=== PATIENT | male | born 1980 | race Two or more races ===

== ENCOUNTER 2016-12-24 11:14 | Inpatient (IN) | payer MEDICAID ==
[~2016-12-24] VITALS: Ht 175.3 cm; Wt 107.4 kg
[2016-12-24] MEDS ORDERED: SODIUM CHLORIDE 0.9% 500 ML IV ONE (11:58)
[2016-12-24 12:23] LABS: Basophils # (auto) 0 uL; Basophils % (auto) 0.3 % (0.0-2.0); CONDITION Y; Eosinophils # (auto) 0 uL; Eosinophils % (auto) 0.4 % (0.0-7.0); Hematocrit 49.6 % (41.0-53.0); Hemoglobin 17.2 g/dL (13.5-17.5); Lymphocytes # (auto) 1.7 uL; Lymphocytes % (auto) 21.2 % (10.0-50.0); Mean Corpuscular Hemoglobin 31.2 pg (28.0-32.0); Mean Corpuscular Hgb Conc. 34.6 g/dL (32.0-36.0); Mean Platelet Volume 8.8 fL (7.4-10.4); Monocytes # (auto) 0.9 uL; Monocytes % (auto) 11.1 % (0.0-12.0); Neutrophils # (auto) 5.4 uL; Platelet Count (auto) 244 10^3/uL (140-450); Red Cell Distribution Width 13.6 % (11.6-16.0); White Blood Cell 8.1 10^3/uL (4.4-10.8)
[2016-12-24 12:57] LABS: Albumin 3.9 g/dL (3.4-5.0); Bilirubin, Total 0.8 mg/dL (0.2-1.0); Calcium 9.2 mg/dL (8.5-10.1); Magnesium 2.2 mg/dL (1.6-2.6); Potassium 4.3 mmol/L (3.5-5.1); Total Protein 8.5 g/dL (6.4-8.2)
[2016-12-24] MEDS ORDERED: SODIUM CHLORIDE 0.9% 1,000 ML IV ONE (13:15)
[2016-12-24] MEDS ORDERED: InsuLIN REG 1unit/0.01ml Soln (100units/ml) IV ONE (13:15)
[2016-12-24] MEDS ORDERED: LACTULOSE 20Gm/30ML SOLN PO PRN (15:30)
[2016-12-24] MEDS ORDERED: MORPHINE SULF INJ 2 MG/ML SYRINGE 1ML IV PRN (15:30)
[2016-12-24] MEDS ORDERED: THIAMINE HCL 100 MG/ML 2ML VIAL IV ONE (15:30)
[2016-12-24] MEDS ORDERED: HYDROcodone-ACET 5/325MG TAB PO PRN (15:30)
[2016-12-24] MEDS ORDERED: LORazepam 2MG/ML-1ML VIAL IV PRN (15:30)
[2016-12-24] MEDS ORDERED: LORazepam 0.5 MG TAB PO PRN (15:30)
[2016-12-24] MEDS ORDERED: ACETAMINOPHEN 500 MG TAB PO PRN (15:30)
[2016-12-24] MEDS ORDERED: TEMAZEPAM 15 MG CAP PO PRN (15:30)
[2016-12-24] MEDS ORDERED: chlordiazePOXIDE HCL 25 MG CAP PO PRN (15:30)
[2016-12-24] MEDS ORDERED: DEXTROSE (50%) 50ML SYRG IV PRN (15:30)
[2016-12-24] MEDS ORDERED: ONDANSETRON HCL 4 MG/2 ML VIAL IV PRN (15:30)
[2016-12-24] MEDS ORDERED: LABETALOL HCL 5 MG/ML ML 20ML VIAL IV PRN (15:30)
[2016-12-24] MEDS: ACCU-CHEK COMFORT CURVE STRIP VI SCH ×3 (15:39→23:41)
[2016-12-24] MEDS ORDERED: LABETALOL HCL 5 MG/ML ML 20ML VIAL IV ONE (15:45)
[2016-12-24] MEDS: InsuLIN REG 1unit/0.01ml Soln (100units/ml) SC SCH ×3 (15:50→23:47)
[2016-12-24 16:00] LABS: Cholesterol 188 mg/dL (< 200); HDL Cholesterol 40 mg/dL (40-59); LDL Cholesterol 111 mg/dL (< 100); Triglycerides 283 mg/dL (< 150)
[2016-12-24 16:25] LABS: Temperature: 22.2 C (20.0-25.0)
[2016-12-24] MEDS ORDERED: chlordiazePOXIDE HCL 25 MG CAP PO ONE (17:30)
[2016-12-24] MEDS ORDERED: cloNIDine HCL 0.1 MG TAB PO ONE (17:30)
[2016-12-24] MEDS ORDERED: chlordiazePOXIDE HCL 5 MG CAP PO SCH (18:00)
[2016-12-24] MEDS: THIAMINE INJ 100 MG, MULTIPLE VITAMIN 10 ML, FOLIC ACID 1 MG, MAGNESIUM SULF SDV 50% 8 ... IV SCH ×5 (18:05)
[2016-12-24] MEDS: chlordiazePOXIDE HCL 25 MG CAP PO SCH ×2 (18:05→23:40)
[2016-12-24] MEDS: SODIUM CHLORIDE 0.9% 1,000 ML IV SCH (18:51)
[2016-12-24 19:24] LABS: Urine Bilirubin Negative (Negative); Urine Blood Negative /uL (Negative); Urine Color Yellow (Yellow); Urine Nitrite Negative (Negative); Urine RBC <1 /hpf (0 - 3); Urine Squamous Epithelial Cell FEW /hpf (<5); Urine Urobilinogen Normal (Negative)
[2016-12-24 19:27] LABS: Urine Glucose 4+ mg/dL (Normal); Urine Ketone 1+ (Negative)
[2016-12-24 20:00] VITALS: BP 163/86
[2016-12-24] MEDS: ATORVASTATIN 20 MG TAB PO SCH (21:39)
[2016-12-24 22:00] VITALS: BP 163/86
[2016-12-24] MEDS ORDERED: ATORVASTATIN 20 MG TAB PO SCH ×2 (22:00)
[2016-12-24] MEDS: cloNIDine HCL 0.1 MG TAB PO PRN (22:29)
[2016-12-24] MEDS ORDERED: GLIP-115 PO (22:48)
[2016-12-24] MEDS ORDERED: HYDR-2652 PO (22:49)
[2016-12-25] MEDS: SODIUM CHLORIDE 0.9% 1,000 ML IV SCH ×4 (01:19→20:46)
[2016-12-25] MEDS: ACCU-CHEK COMFORT CURVE STRIP VI SCH ×5 (04:06→19:51)
[2016-12-25] MEDS: InsuLIN REG 1unit/0.01ml Soln (100units/ml) SC SCH ×5 (04:07→20:37)
[2016-12-25 05:50] LABS: Basophils # (auto) 0 uL; Basophils % (auto) 0.5 % (0.0-2.0); CONDITION Y; DEFINITIVE SEE PRINTOUT; Eosinophils # (auto) 0.1 uL; Eosinophils % (auto) 1.6 % (0.0-7.0); Hematocrit 41.7 % (41.0-53.0); Hemoglobin 14.9 g/dL (13.5-17.5); Lymphocytes # (auto) 2.7 uL; Lymphocytes % (auto) 36.2 % (10.0-50.0); Mean Corpuscular Hemoglobin 32.2 pg (28.0-32.0); Mean Corpuscular Hgb Conc. 35.8 g/dL (32.0-36.0); Mean Corpuscular Volume 89.9 fL (80.0-100.0); Mean Platelet Volume 8.5 fL (7.4-10.4); Monocytes # (auto) 0.6 uL; Monocytes % (auto) 8.2 % (0.0-12.0); Neutrophils # (auto) 3.9 uL; Neutrophils % (auto) 53.5 % (37.0-80.0); Platelet Count (auto) 196 10^3/uL (140-450); Red Cell Distribution Width 13.4 % (11.6-16.0); White Blood Cell 7.3 10^3/uL (4.4-10.8)
[2016-12-25 05:53] VITALS: BP 126/88
[2016-12-25 06:00] LABS: INR 1.12 (0.9-1.15); Partial Thromboplastin Time 26.5 sec (22.64-33.71); Prothrombin Time 12.2 sec (9.37-12.3)
[2016-12-25 06:14] LABS: Albumin 2.9 g/dL (3.4-5.0); Bilirubin, Total 0.9 mg/dL (0.2-1.0); Potassium 3.1 mmol/L (3.5-5.1); Total Protein 6.4 g/dL (6.4-8.2)
[2016-12-25] MEDS: chlordiazePOXIDE HCL 25 MG CAP PO SCH ×3 (06:14→18:00)
[2016-12-25 08:23] VITALS: BP 124/76
[2016-12-25] MEDS: ASPirin 81 mg TAB PO SCH (09:20)
[2016-12-25] MEDS: THIAMINE HCL 100 MG/ML 2ML VIAL IV SCH (09:21)
[2016-12-25] MEDS ORDERED: ASPirin 81 mg TAB PO ONE (10:00)
[2016-12-25] MEDS ORDERED: POTASSIUM CHL 20 Meq TABLET PO ONE (13:00)
[2016-12-25 13:19] VITALS: BP 145/86
[2016-12-25] MEDS: glipiZIDE 5 MG TAB PO SCH (13:27)
[2016-12-25] MEDS: LISINOPRIL 10 MG TAB PO SCH (13:27)
[2016-12-25] MEDS: HCTZ 25 MG TAB PO SCH (13:28)
[2016-12-25] MEDS ORDERED: DEXTROSE (50%) 50ML SYRG IV PRN (14:00)
[2016-12-25 17:23] VITALS: BP 151/96
[2016-12-25] MEDS: THIAMINE INJ 100 MG, MULTIPLE VITAMIN 10 ML, FOLIC ACID 1 MG, MAGNESIUM SULF SDV 50% 8 ... IV SCH ×5 (18:26)
[2016-12-25 20:00] VITALS: BP 174/94
[2016-12-25] MEDS: ATORVASTATIN 20 MG TAB PO SCH (20:36)
[2016-12-25] MEDS: cloNIDine HCL 0.1 MG TAB PO PRN (20:48)
[2016-12-25 22:19] VITALS: BP 174/94
[2016-12-26] MEDS: ACCU-CHEK COMFORT CURVE STRIP VI SCH ×3 (00:09→08:00)
[2016-12-26] MEDS: chlordiazePOXIDE HCL 25 MG CAP PO SCH ×2 (00:48→06:24)
[2016-12-26] MEDS: InsuLIN REG 1unit/0.01ml Soln (100units/ml) SC SCH ×3 (00:49→08:00)
[2016-12-26] MEDS: SODIUM CHLORIDE 0.9% 1,000 ML IV SCH (03:50)
[2016-12-26 06:04] VITALS: BP 135/82
[2016-12-26] MEDS: glipiZIDE 5 MG TAB PO SCH (06:26)
[2016-12-26 08:10] VITALS: BP 135/84
[2016-12-26] MEDS: ASPirin 81 mg TAB PO SCH (09:35)
[2016-12-26] MEDS: THIAMINE HCL 100 MG/ML 2ML VIAL IV SCH (09:35)
[2016-12-26] MEDS: LISINOPRIL 10 MG TAB PO SCH (09:36)
[2016-12-26] MEDS: HCTZ 25 MG TAB PO SCH (09:36)
[2016-12-26 11:51] VITALS: BP 135/84
[2016-12-26 12:34] VITALS: BP 180/89
== END 2016-12-26 13:00 | disposition home or self-care (01) | DRG 199 ==
LOC: ER 11:14 → TELE 11:15 → TELE-WESTW 19:37
PROVIDERS: ADMIT Internal Medicine; ATTEND Internal Medicine
DX: I16.0 Hypertensive urgency (principal); E11.42 Type 2 diabetes mellitus with diabetic polyneuropathy; E11.65 Type 2 diabetes mellitus with hyperglycemia; I10 Essential (primary) hypertension; L03.114 Cellulitis of left upper limb; E11.319 Type 2 diabetes mellitus with unspecified diabetic retinopathy without macular edema; E78.5 Hyperlipidemia, unspecified; E66.9 Obesity, unspecified; F10.20 Alcohol dependence, uncomplicated; H54.42 Blindness, left eye, normal vision right eye; F15.90 Other stimulant use, unspecified, uncomplicated; S61.512A Laceration without foreign body of left wrist, initial encounter; Z79.82 Long term (current) use of aspirin; Z79.899 Other long term (current) drug therapy; Z82.49 Family history of ischemic heart disease and other diseases of the circulatory system; Z83.3 Family history of diabetes mellitus; Z91.19 Patient's noncompliance with other medical treatment and regimen; X58.XXXA Exposure to other specified factors, initial encounter; Y93.89 Activity, other specified; Y92.89 Other specified places as the place of occurrence of the external cause; Z68.35 Body mass index [BMI] 35.0-35.9, adult
CPT/HCPCS: 36415; 70450; 71010; 80053; 80061; 80307; 80320; 81001; 82550; 82607; 82746; 82962; 83036; 83735; 84443; 85025; 85610; 85652; 85730; 93005; 93306; 93886; 96361; 96374; 96375; J1815

== ENCOUNTER 2018-06-11 13:44 | Emergency (ER) | payer MEDICAID ==
[~2018-06-11] VITALS: Ht 175.3 cm; Wt 108.9 kg
[~2018-06-11 13:44] MED LIST: GLIP-115 PO; HYDR50TA15 PO
[2018-06-11 13:59] VITALS: BP 190/100
== END 2018-06-11 15:01 | disposition home or self-care (01) ==
LOC: EDBD 13:44 → ER 13:49
DX: S13.4XXA Sprain of ligaments of cervical spine, initial encounter (principal); S60.221A Contusion of right hand, initial encounter; E11.9 Type 2 diabetes mellitus without complications; I10 Essential (primary) hypertension; F15.90 Other stimulant use, unspecified, uncomplicated; F14.90 Cocaine use, unspecified, uncomplicated; Z79.899 Other long term (current) drug therapy; Z79.84 Long term (current) use of oral hypoglycemic drugs; V49.59XA Passenger injured in collision with other motor vehicles in traffic accident, initial encounter; Y93.89 Activity, other specified; Y99.8 Other external cause status; Y92.89 Other specified places as the place of occurrence of the external cause
CPT/HCPCS: 71101; 73120

== ENCOUNTER 2018-09-20 16:28 | Emergency (ER) | payer MEDICAID ==
[~2018-09-20] VITALS: Ht 180.3 cm; Wt 124.7 kg
[2018-09-20 16:37] VITALS: BP 161/89
[2018-09-20 17:14] LABS: Chloride 107 mmol/L (98-107); Potassium 3.9 mmol/L (3.5-5.1); Sodium 139 mmol/L (136-145)
[2018-09-20 17:16] LABS: Basophils # (auto) 0 uL; Basophils % (auto) 0.4 % (0.0-2.0); Eosinophils # (auto) 0.1 uL; Eosinophils % (auto) 0.8 % (0.0-7.0); Hemoglobin 13.4 g/dL (13.5-17.5); Lymphocytes # (auto) 1.9 uL; Lymphocytes % (auto) 26.6 % (10.0-50.0); Mean Corpuscular Hemoglobin 29.6 pg (28.0-32.0); Mean Corpuscular Hgb Conc. 32.8 g/dL (32.0-36.0); Mean Corpuscular Volume 90.3 fL (80.0-100.0); Monocytes # (auto) 0.8 uL; Monocytes % (auto) 10.8 % (0.0-12.0); Neutrophils # (auto) 4.4 uL; Neutrophils % (auto) 61.4 % (37.0-80.0); Platelet Count (auto) 246 10^3/uL (140-450); Red Blood Cells 4.53 10^6/uL (4.5-5.90); Red Cell Distribution Width 13.3 % (11.8-14.3); White Blood Cell 7.2 10^3/uL (4.4-10.8)
[2018-09-20 17:19] LABS: Albumin 3.1 g/dL (3.4-5.0); Anion Gap 9 (5-15); Blood Urea Nitrogen 24 mg/dL (7-18); Calcium 8.2 mg/dL (8.5-10.1); Carbon Dioxide 23 mmol/L (21-32); Glucose 296 mg/dL (74-106)
[2018-09-20 17:22] LABS: Alanine Aminotransferase 30 U/L (16-61); Aspartate Aminotransferase 22 U/L (15-37); BUN/Creatinine Ratio 23.3; GFR African American 104 mL/min; GFR Non-African American 86 mL/min
[2018-09-20 17:25] LABS: Alkaline Phosphatase 45 U/L (45-117); Bilirubin, Total 0.6 mg/dL (0.2-1.0)
== END 2018-09-20 17:10 | disposition left against medical advice (07) ==
LOC: EDBD 16:28 → ER 16:47
DX: R42 Dizziness and giddiness (principal); Z53.21 Procedure and treatment not carried out due to patient leaving prior to being seen by health care provider
CPT/HCPCS: 36415; 80053; 84484; 85025; 93005

== ENCOUNTER 2018-12-23 17:47 | Emergency (ER) | payer MEDICAID ==
[~2018-12-23] VITALS: Ht 172.7 cm; Wt 125.6 kg
[~2018-12-23 17:47] MED LIST changes: -GLIP-115 PO; +GLIP5TAB12 PO
[2018-12-23 19:36] LABS: Basophils # (auto) 0 uL; Basophils % (auto) 0.4 % (0.0-2.0); Eosinophils # (auto) 0.1 uL; Eosinophils % (auto) 0.5 % (0.0-7.0); Hematocrit 43.4 % (41.0-53.0); Hemoglobin 14.9 g/dL (13.5-17.5); Lymphocytes # (auto) 2.2 uL; Lymphocytes % (auto) 22.4 % (10.0-50.0); Mean Corpuscular Hemoglobin 30.2 pg (28.0-32.0); Mean Corpuscular Hgb Conc. 34.3 g/dL (32.0-36.0); Mean Corpuscular Volume 87.9 fL (80.0-100.0); Monocytes # (auto) 0.9 uL; Monocytes % (auto) 9.5 % (0.0-12.0); Neutrophils # (auto) 6.7 uL; Neutrophils % (auto) 67.2 % (37.0-80.0); Nucleated Red Blood Cells % 0.1 %; Platelet Count (auto) 277 10^3/uL (140-450); Red Blood Cells 4.94 10^6/uL (4.5-5.90); Red Cell Distribution Width 13.8 % (11.8-14.3); White Blood Cell 9.9 10^3/uL (4.4-10.8)
[2018-12-23 19:55] LABS: Albumin 3.6 g/dL (3.4-5.0); Calcium 8.8 mg/dL (8.5-10.1); Potassium 4.1 mmol/L (3.5-5.1)
[2018-12-23 19:59] LABS: BUN/Creatinine Ratio 10.1; Bilirubin, Total 0.7 mg/dL (0.2-1.0); Total Protein 7.9 g/dL (6.4-8.2)
[2018-12-23 20:41] LABS: Urine Bacteria NONE SEEN /hpf (None Seen); Urine Blood Negative /uL (Negative); Urine Specific Gravity 1.029 (1.001-1.035); Urine WBC <1 /hpf (0 - 3)
[2018-12-23] MEDS ORDERED: CIPROFLOXACIN HCL 500 MG TAB PO ONE (22:00)
[2018-12-23] MEDS ORDERED: HYDROcodone-ACET 5/325MG TAB PO ONE (22:30)
[2018-12-23 23:41] VITALS: BP 141/79
== END 2018-12-23 23:35 | disposition home or self-care (01) ==
LOC: ER 17:47
DX: K80.20 Calculus of gallbladder without cholecystitis without obstruction (principal); N30.90 Cystitis, unspecified without hematuria; E11.9 Type 2 diabetes mellitus without complications; I10 Essential (primary) hypertension; F12.10 Cannabis abuse, uncomplicated; F14.10 Cocaine abuse, uncomplicated
CPT/HCPCS: 36415; 74176; 80053; 81001; 85025